=== PATIENT | male | born 1965 | race Two or more races ===

== ENCOUNTER 2021-05-23 01:07 | Emergency (ER) | payer SELFPAY ==
[~2021-05-23] VITALS: Ht 175.3 cm; Wt 73.5 kg
[2021-05-23 01:23] VITALS: BP 124/75
== END 2021-05-23 03:34 | disposition left against medical advice (07) ==
LOC: ER 01:10
DX: R05.9 Cough, unspecified (principal); M79.10 Myalgia, unspecified site; R06.02 Shortness of breath; Z53.21 Procedure and treatment not carried out due to patient leaving prior to being seen by health care provider; Z20.822 Contact with and (suspected) exposure to COVID-19
CPT/HCPCS: 36415; 87426